=== PATIENT | female | born 1955 | race Caucasian/White ===

== ENCOUNTER 2016-12-05 08:51 | Outpatient (CLI) | payer BC | END 2016-12-05 18:08 | disposition home or self-care (01) | LOC: SMA 08:51 | PROVIDERS: ATTEND Obstetrics & Gynecology Gynecology | DX: Z12.31 Encounter for screening mammogram for malignant neoplasm of breast (principal) | CPT/HCPCS: 77067; G0202 ==

== ENCOUNTER 2017-12-25 08:19 | Outpatient (CLI) | payer BC | END 2017-12-25 20:21 | disposition home or self-care (01) | LOC: SMA 08:19 | PROVIDERS: ATTEND Obstetrics & Gynecology Gynecology | DX: Z12.31 Encounter for screening mammogram for malignant neoplasm of breast (principal) | CPT/HCPCS: 77067 ==